=== PATIENT | male | born 1960 | race Caucasian/White ===

== ENCOUNTER 2021-06-26 11:31 | Outpatient (CLI) | payer OTHER, SELFPAY ==
[2021-06-26 11:43] VITALS: BP 138/86; PULSE 75; RESP 16; TEMP 36.5; O2SAT 98; BMI 30.9
[2021-06-26] MEDS: 0.9% Saline Lock 10 ML Syringe IV (11:50)
[2021-06-26 12:22] VITALS: BP 133/88; PULSE 74; RESP 16; TEMP 37.8; O2SAT 99
[2021-06-26 13:10] VITALS: BP 134/85; PULSE 74; RESP 16; TEMP 37.1; O2SAT 98
== END 2021-06-26 13:22 | disposition home or self-care (01) ==
LOC: MS3OUT 11:31 → MS3 11:32
PROVIDERS: Referring Provider Nurse Practitioner Adult Health; Visit Provider Nurse Practitioner Adult Health
DX: Z23 Encounter for immunization (principal); U07.1 COVID-19
CPT/HCPCS: J7050; M0245; Q0245; A4216